=== PATIENT | female | born 1990 | race Two or more races ===

== ENCOUNTER 2020-05-14 06:22 | Outpatient (CLI) | payer OTHER | END 2020-05-14 06:29 | disposition home or self-care (01) | LOC: LAB 06:22 | PROVIDERS: ATTEND Internal Medicine Gastroenterology | DX: E03.8 Other specified hypothyroidism (principal); R10.32 Left lower quadrant pain; E78.2 Mixed hyperlipidemia; D50.8 Other iron deficiency anemias; B19.20 Unspecified viral hepatitis C without hepatic coma ==

== ENCOUNTER 2020-05-14 07:13 | Outpatient (CLI) | payer OTHER | END 2020-05-14 07:25 | disposition home or self-care (01) | LOC: RAD 07:13 | PROVIDERS: ATTEND Internal Medicine Gastroenterology | DX: R10.31 Right lower quadrant pain (principal) ==